=== PATIENT | male | born 1970 | race Caucasian/White ===

== ENCOUNTER 2023-12-14 02:20 | Emergency (ER) | payer MEDICAID ==
[~2023-12-14] VITALS: Ht 172.7 cm; Wt 83.9 kg
[2023-12-14 02:28] VITALS: BP_SYST 179; PULSE 77; RESP 20; TEMP 98; O2SAT 98
[2023-12-14] MEDS ORDERED: PRED20TA PO (02:49)
[2023-12-14] MEDS: EPINEPHRINE HCL/PF 1 MG/ML AMP IM ONE (02:56)
[2023-12-14 04:15] VITALS: BP_SYST 74; PULSE 74; RESP 17; TEMP 98.2; O2SAT 98
[2023-12-14] MEDS ORDERED: TRAM50TA2 PO (12:58)
[2023-12-14] MEDS ORDERED: DIPH25CA83 PO (12:58)
[2023-12-14] MEDS ORDERED: NEOM28.37 TP (12:58)
== END 2023-12-14 04:16 | disposition home or self-care (01) ==
LOC: SED 02:20
DX: T78.49XA Other allergy, initial encounter (principal); X58.XXXA Exposure to other specified factors, initial encounter
CPT/HCPCS: 99283; 96372; J0171

== ENCOUNTER 2023-12-14 10:41 | Emergency (ER) | payer MEDICAID ==
[~2023-12-14] VITALS: Ht 170.2 cm; Wt 83.9 kg
[~2023-12-14 10:41] MED LIST: PRED20TA PO
[2023-12-14 10:44] VITALS: BP_SYST 142; PULSE 81; RESP 17; TEMP 98.1; O2SAT 98
[2023-12-14] MEDS: predniSONE 20 MG TABLET PO ONE (11:08)
[2023-12-14] MEDS: FAMOTIDINE 20 MG TABLET PO ONE (11:09)
[2023-12-14] MEDS: DIPHENHYDRAMINE INJ 50 MG/ML VIAL IM ONE (11:09)
[2023-12-14 11:17] LABS: BASOPHILS % (AUTO) 0.3 % (0.0-2.0); EOSINOPHILS # (AUTO) 0.3 K/uL (0.0-0.4); EOSINOPHILS % (AUTO) 3.8 % (0.0-4.0); HEMATOCRIT 46.9 % (36-54); LYMPHOCYTES # (AUTO) 1.8 K/uL (1.0-5.5); LYMPHOCYTES % (AUTO) 23.9 % (20.5-51.5); MEAN CORPUSCULAR HEMOGLOBIN 32 pg (27-31); MEAN CORPUSCULAR HGB CONC 34 % (32-36); MEAN CORPUSCULAR VOLUME 93 fL (79.0-98.0); MONOCYTES # (AUTO) 0.6 K/uL (0.0-1.0); MONOCYTES % (AUTO) 7.5 % (1.7-9.3); NEUTROPHILS # (AUTO) 4.7 K/uL (1.8-7.7); NEUTROPHILS % (AUTO) 64.5 % (40.0-70.0); PLATELET COUNT (AUTO) 238 K/uL (130-430); RED BLOOD CELL COUNT(AUTO) 5.06 MIL/uL (4.2-6.2); RED CELL DISTRIBUTION WIDTH 13.9 % (9.0-15.0); WHITE BLOOD COUNT (AUTO) 7.3 K/uL (4.8-10.8)
[2023-12-14 11:44] LABS: ALBUMIN 3.6 g/dL (3.4-4.8); BILIRUBIN,DIRECT 0.2 mg/dL (0.0-0.3); CALCIUM 8.7 mg/dL (8.4-11.0); CREATININE 0.91 mg/dL (0.55-1.30); POTASSIUM 3.9 mmol/L (3.5-5.1); TOTAL BILIRUBIN 0.8 mg/dL (0.0-1.0); TOTAL PROTEIN, SERUM 6.9 g/dL (6.4-8.3)
[2023-12-14] MEDS ORDERED: NEOM28.37 TP (12:58)
[2023-12-14] MEDS ORDERED: TRAM50TA2 PO (12:58)
[2023-12-14] MEDS ORDERED: DIPH25CA83 PO (12:58)
[2023-12-14 13:07] VITALS: BP_SYST 137; PULSE 63; RESP 20; TEMP 97.8; O2SAT 98
== END 2023-12-14 13:08 | disposition home or self-care (01) ==
LOC: SED 10:41
DX: L25.9 Unspecified contact dermatitis, unspecified cause (principal)
CPT/HCPCS: 99283; 80076; 80048; 85025; 36415; 96372; 82397; J7512; J1200